=== PATIENT | male | born 1990 | race Two or more races ===

== ENCOUNTER 2020-06-21 13:59 | Emergency (ER) | payer OTHER ==
[~2020-06-21] VITALS: Ht 180.3 cm; Wt 64.0 kg
[~2020-06-21 13:59] MED LIST: LIDOcaine 1% W/epiNEPHrine 1:200,000 10ml vial ONE
[2020-06-21 14:00] VITALS: BP 116/58
--- NOTE | 2020-06-21 14:11 | NUR ---
SPOKE TO PROVIDER MEENAKSHI, RE: PT NEED CT/ HE STATES NO HE DOESN'T MEET CRITERIA
== END 2020-06-21 17:13 | disposition home or self-care (01) ==
LOC: ER 14:00
DX: S01.01XA Laceration without foreign body of scalp, initial encounter (principal); W22.8XXA Striking against or struck by other objects, initial encounter; Y93.89 Activity, other specified; Y92.89 Other specified places as the place of occurrence of the external cause; Y99.8 Other external cause status
CPT/HCPCS: 12002; 99282

== ENCOUNTER 2020-07-01 10:08 | Emergency (ER) | payer OTHER ==
[~2020-07-01] VITALS: Ht 177.8 cm; Wt 68.2 kg
[2020-07-01 10:10] VITALS: BP 111/65
== END 2020-07-01 10:35 | disposition home or self-care (01) ==
LOC: ER 10:09
DX: S01.01XD Laceration without foreign body of scalp, subsequent encounter (principal); X58.XXXD Exposure to other specified factors, subsequent encounter
CPT/HCPCS: 99281